=== PATIENT | male | born 1945 | race African-American/Black ===

== ENCOUNTER 2020-03-14 07:14 | Inpatient (IN) ==
[2020-03-14] MEDS ORDERED: ONDANSETRON 4 MG/2 ML VIAL IV PRN (11:44)
[2020-03-14] MEDS ORDERED: DOCUSATE SODIUM 100 MG CAPSULE PO PRN (11:44)
[2020-03-14] MEDS ORDERED: hydrALAZINE 20 MG/1 ML VIAL IV PRN (11:44)
[2020-03-14] MEDS ORDERED: GLUCAGON 1 MG VIAL IM PRN (11:44)
[2020-03-14] MEDS ORDERED: DEXTROSE 50% 25 GM/50 ML VIAL IV PRN (11:44)
[2020-03-14] MEDS ORDERED: guaiFENesin/DM ER 600-30 MG TABLET PO PRN (11:44)
[2020-03-14] MEDS ORDERED: EPOETIN ALFA 2,000 UNIT/1 ML VIAL IV PRN (12:17)
[2020-03-14 12:18] LABS: Basophils % 0.4 % (0.0-0.8); Eosinophils % 0.7 % (0.00-10.9); Hematocrit 31.1 VOL% (42.0-52.0); Hemoglobin 9.8 GM/DL (14.0-18.0); Immature Granulocytes % 0.4 %; Immature Granulocytes Absolute 0.02 #; Lymphocytes # 0.7 10*3/uL (1.4-4.0); Lymphocytes % 11.4 % (21.2-54.2); Mean Corpuscular HGB Conc 31.5 GM/DL (32-36); Mean Corpuscular Volume 84.1 FL (87-102); Mean Platelet Volume 9.5 FL (9.6-12.0); Monocytes % 10.5 % (1.7-12.7); Neutrophils % 76.6 % (38.7-73.9); Platelet Count 105 T/CUMM (130-400); Red Cell Distribution Width 20.7 % (9.3-17.3); White Blood Count 5.7 T/CUMM (4-12)
[2020-03-14 12:40] LABS: Albumin 3.4 G/DL (3.4-5.0); Bilirubin,Total 0.4 MG/DL (0.2-1.0); Calcium 8.1 MG/DL (8.5-10.1); Osmolality,Calculated 300.5 MOS/KG (273-304); Total Protein 8.4 G/DL (6.4-8.3)
[2020-03-14 12:45] LABS: Anisocytosis 2+; Platelet Estimate Adequate
[2020-03-14 12:46] LABS: Poikilocytosis Slight; Tear Drop Cells Few
[2020-03-14 12:51] LABS: Thyroid Stimulating Hormone 6.07 uIU/ml (0.358-3.74)
[2020-03-14] MEDS ORDERED: EPOETIN ALFA-EPBX 2,000 UNIT/ML VIAL IV PRN (13:00)
[2020-03-14 13:04] LABS: Risk Ratio 2.47
[2020-03-14 14:25] LABS: Hepatitis B Surface Ag Quant < 0.10 Index; Hepatitis B Surface Ag Result Negative (Negative); Hepatitis C Virus Ab Quant 0.12 Index; Hepatitis C Virus Ab Result Negative (Negative)
[2020-03-14] MEDS: HEPARIN 5,000 UNIT/1 ML VIAL SUBCUT SCH (17:32)
[2020-03-15] MEDS: HEPARIN 5,000 UNIT/1 ML VIAL SUBCUT SCH ×3 (01:22→16:20)
[2020-03-15] MEDS: ACETAMINOPHEN 325 MG TABLET PO PRN (01:22)
[2020-03-15 06:56] LABS: Basophils % 0.2 % (0.0-0.8); Eosinophils % 0.2 % (0.00-10.9); Hematocrit 28.4 VOL% (42.0-52.0); Immature Granulocytes % 0.2 %; Immature Granulocytes Absolute 0.01 #; Lymphocytes # 0.9 10*3/uL (1.4-4.0); Lymphocytes % 20.4 % (21.2-54.2); Mean Corpuscular HGB Conc 31.7 GM/DL (32-36); Mean Corpuscular Volume 83.3 FL (87-102); Mean Platelet Volume 11.1 FL (9.6-12.0); Platelet Count 74 T/CUMM (130-400); Red Blood Count 3.41 MC/CUMM (3.8-5.5); White Blood Count 4.2 T/CUMM (4-12)
[2020-03-15 07:15] LABS: Calcium 7.8 MG/DL (8.5-10.1); Osmolality,Calculated 292.5 MOS/KG (273-304)
[2020-03-15 07:21] LABS: Anisocytosis 2+; Platelet Estimate Decreased
[2020-03-15 07:22] LABS: Poikilocytosis Slight; Tear Drop Cells Few
[2020-03-15] MEDS: PANTOPRAZOLE 40 MG TABLET PO SCH (08:45)
[2020-03-15] MEDS: SEVELAMER CARBONATE 800 MG TABLET PO SCH ×2 (11:38→16:19)
[2020-03-16] MEDS: HEPARIN 5,000 UNIT/1 ML VIAL SUBCUT SCH ×3 (00:38→16:32)
[2020-03-16] MEDS: ACETAMINOPHEN 325 MG TABLET PO PRN (00:38)
[2020-03-16 06:23] LABS: Basophils % 0.4 % (0.0-0.8); Eosinophils % 0.4 % (0.00-10.9); Hematocrit 28.4 VOL% (42.0-52.0); Hemoglobin 9.1 GM/DL (14.0-18.0); Immature Granulocytes % 0.4 %; Immature Granulocytes Absolute 0.02 #; Lymphocytes # 0.8 10*3/uL (1.4-4.0); Lymphocytes % 17.1 % (21.2-54.2); Mean Corpuscular Volume 82.1 FL (87-102); Monocytes % 13.5 % (1.7-12.7); Neutrophils % 68.2 % (38.7-73.9); Platelet Count 77 T/CUMM (130-400); Red Blood Count 3.46 MC/CUMM (3.8-5.5); Red Cell Distribution Width 19.5 % (9.3-17.3); White Blood Count 4.5 T/CUMM (4-12)
[2020-03-16 08:12] LABS: Calcium 7.8 MG/DL (8.5-10.1); Osmolality,Calculated 285.7 MOS/KG (273-304)
[2020-03-16] MEDS: SEVELAMER CARBONATE 800 MG TABLET PO SCH ×3 (08:52→16:32)
[2020-03-16] MEDS: PANTOPRAZOLE 40 MG TABLET PO SCH (08:53)
[2020-03-16 13:19] LABS: Ferritin 767.3 ng/ml (26-388)
[2020-03-16] MEDS ORDERED: PHENOL 1.4% THROAT SPRAY 177 ML BOTTLE PO PRN (16:16)
[2020-03-16 19:01] LABS: Bacteria,Urine Occasional /HPF (Few); Bilirubin,Urine Negative (Negative); Blood, Urine Negative (Negative); Glucose,Urine (UA) 50 mg/dL (Negative); Hyaline Casts,Urine 3 /LPF (0-3); Ketones,Urine Negative (Negative); Mucus,Urine Occasional /LPF (Occasional); Nitrite,Urine Negative (Negative); Protein,Urine >=500 MG/DL; RBC,Urine 4 /HPF (0-4); Urine Appearance CLEAR (Clear); Urine Color Yellow (Yellow); Urine Specific Gravity 1.015 (1.001-1.035); Urine Urobilinogen < 2.0 EU/DL (0.2-1.0); WBC,Urine <1 /HPF (0-6)
[2020-03-17] MEDS: HEPARIN 5,000 UNIT/1 ML VIAL SUBCUT SCH ×3 (00:50→18:23)
[2020-03-17] MEDS: ACETAMINOPHEN 325 MG TABLET PO PRN ×2 (01:54→20:58)
[2020-03-17 06:40] LABS: Basophils % 0.4 % (0.0-0.8); Eosinophils % 0.4 % (0.00-10.9); Hematocrit 28.9 VOL% (42.0-52.0); Hemoglobin 9.2 GM/DL (14.0-18.0); Immature Granulocytes % 0.4 %; Immature Granulocytes Absolute 0.02 #; Lymphocytes # 0.6 10*3/uL (1.4-4.0); Lymphocytes % 13.2 % (21.2-54.2); Mean Corpuscular HGB Conc 31.8 GM/DL (32-36); Monocytes % 9.8 % (1.7-12.7); Neutrophils % 75.8 % (38.7-73.9); Platelet Count 72 T/CUMM (130-400); Red Blood Count 3.48 MC/CUMM (3.8-5.5); White Blood Count 4.7 T/CUMM (4-12)
[2020-03-17 07:02] LABS: Ferritin 903.1 ng/ml (26-388)
[2020-03-17 07:06] LABS: Calcium 7.7 MG/DL (8.5-10.1); Osmolality,Calculated 283.1 MOS/KG (273-304)
[2020-03-17] MEDS: PANTOPRAZOLE 40 MG TABLET PO SCH (09:04)
[2020-03-17] MEDS: SEVELAMER CARBONATE 800 MG TABLET PO SCH ×3 (09:04→18:23)
[2020-03-17] MEDS: SODIUM BICARBONATE 650 MG TABLET PO SCH (18:21)
[2020-03-17] MEDS: FUROSEMIDE 40 MG TABLET PO SCH (18:23)
[2020-03-17] MEDS: amLODIPine 10 MG TABLET PO SCH (18:23)
[2020-03-18] MEDS: HEPARIN 5,000 UNIT/1 ML VIAL SUBCUT SCH ×2 (00:44→08:17)
[2020-03-18 06:41] LABS: Ferritin 1177.8 ng/ml (26-388); Free T4 (Free Thyroxine) 0.82 NG/DL (0.76-1.46)
[2020-03-18] MEDS: PANTOPRAZOLE 40 MG TABLET PO SCH (08:18)
[2020-03-18] MEDS: amLODIPine 10 MG TABLET PO SCH (08:18)
[2020-03-18] MEDS: SEVELAMER CARBONATE 800 MG TABLET PO SCH ×2 (08:18→12:14)
[2020-03-18] MEDS: FUROSEMIDE 40 MG TABLET PO SCH (08:18)
[2020-03-18] MEDS: SODIUM BICARBONATE 650 MG TABLET PO SCH (08:18)
[2020-03-18] MEDS ORDERED: DOXAZOSIN 1 MG TABLET PO SCH (09:00)
[2020-03-18 12:59] VITALS: BP 123/84
== END 2020-03-18 16:05 | disposition home or self-care (01) | DRG 640 ==
LOC: N.3E 11:01 → SUATTDRO 11:01 → N.2E 19:00
PROVIDERS: ADMIT Internal Medicine; ATTEND Internal Medicine